=== PATIENT | male | born 1955 | race Caucasian/White ===

== ENCOUNTER 2020-06-20 06:33 | Emergency (ER) | payer MEDICARE ==
[2020-06-20] MEDS ORDERED: Diltiazem 25 MG/5 ML SDV IVPUSH ONE (07:10)
--- NOTE | 2020-06-20 07:33 | EDM.PDOC ---
ED HPI GENERAL MEDICAL PROBLEM - General Chief Complaint: General Stated Complaint: TROUBLE BREATHING Time Seen by Provider: 06/20/20 07:05 Source of Information: Reports: Patient History Limitations: Reports: No Limitations - History of Present Illness INITIAL COMMENTS - FREE TEXT/NARRATIVE: 65-year-old male with 3 days of weakness, palpitations, intermittent shortness of breath. Patient is having trouble sleeping the last 3 nights. No significant pain, denies peripheral edema. No missed medications, denies nausea or vomiting. Onset: Gradual Duration: Day(s): (3 days) Location: Reports: Generalized (Weakness is generalized) Associated Symptoms: Reports: Fever/Chills, Malaise, Shortness of Breath (Especially with activity), Weakness. Denies: Cough, Headaches, Nausea/Vomiting - Related Data Allergies Allergy/AdvReac Type Severity Reaction Status Date / Time No Known Allergies Allergy Verified 06/20/20 07:06 Home Meds: Home Meds Apixaban [Eliquis] 5 mg PO DAILY 06/20/20 [History] Digoxin 125 mcg PO DAILY 06/20/20 [History] Famotidine 40 mg PO ASDIRECTED PRN 06/20/20 [History] Furosemide [Lasix] 20 mg PO ASDIRECTED PRN 06/20/20 [History] Levothyroxine 75 mcg PO ACBREAKFAST 06/20/20 [History] Liothyronine [Cytomel] 5 mcg PO DAILY 06/20/20 [History] Methimazole [Tapazole] 10 mg PO DAILY 06/20/20 [History] Metoprolol Succinate 200 mg PO DAILY 06/20/20 [History] Sacubitril/Valsartan [Entresto 97 mg-103 mg Tablet] 1 each PO BID 06/20/20 [History] Spironolactone [Aldactone] 12.5 mg PO DAILY 06/20/20 [History] atorvaSTATin [Lipitor] 20 mg PO BEDTIME 06/20/20 [History] hydrALAZINE [Apresoline] 25 mg PO DAILY 06/20/20 [History] hydroCHLOROthiazide [Hydrochlorothiazide] 25 mg PO DAILY 06/20/20 [History] Past Medical History Cardiovascular History: Reports: Afib, Aneurysm, Other (See Below) Other Cardiovascular History: ablation Endocrine/Metabolic History: Reports: Hypothyroidism - Infectious Disease History Infectious Disease History: Reports: Chicken Pox, Measles, Mumps - Past Surgical History Cardiovascular Surgical History: Reports: Other (See Below) Other Cardiovascular Surgeries/Procedures: pacer/defib combo right chest GI Surgical History: Reports: Hernia Repair/Other Musculoskeletal Surgical History: Reports: Other (See Below) Other Musculoskeletal Surgeries/Procedures:: neck surgery Social & Family History - Tobacco Use Tobacco Use Status *Q: Never Tobacco User - Caffeine Use Caffeine Use: Reports: Coffee, Tea - Recreational Drug Use Recreational Drug Use: No ED ROS GENERAL - Review of Systems Review Of Systems: See Below Constitutional: Reports: Fever, Chills, Malaise, Decreased Appetite HEENT: Denies: Throat Pain Respiratory: Reports: Shortness of Breath. Denies: Sputum Cardiovascular: Reports: Dyspnea on Exertion, Palpitations GI/Abdominal: Denies: Nausea, Vomiting Skin: Denies: Diaphoresis Neurological: Denies: Headache ED EXAM, GENERAL - Physical Exam Exam: See Below Exam Limited By: No Limitations General Appearance: Alert, No Apparent Distress Eye Exam: Right Eye: Normal Inspection Head: Atraumatic Respiratory/Chest: No Respiratory Distress, Rales (Basilar rales are heard bilaterally) Cardiovascular: No Murmur, Tachycardia, Irregularly Irregular GI/Abdominal: Soft, Non-Tender Extremities: Normal Inspection, Non-Tender, No Pedal Edema Neurological: Alert, Oriented Psychiatric: Normal Affect, Normal Mood Skin Exam: Warm, Dry #1 Interpretation EKG Date: 06/20/20 Time: 07:00 Rhythm: A-Fib EKG Interpretation Comments: Atrial fibrillation with rapid ventricular response Course - Vital Signs Last Recorded V/S: Last Vital Signs Temp 102.8 F H 06/20/20 06:53 Pulse 97 06/20/20 09:15 Resp 19 06/20/20 09:15 BP 129/79 06/20/20 09:15 Pulse Ox 96 06/20/20 09:15 - Orders/Labs/Meds Orders: Active Orders 24 hr Category Date Time Status EKG 12 Lead [EK] Routine Ther 06/20/20 07:08 Ordered Labs: Laboratory Tests 06/20/20 06/20/20 06/20/20 Range/Units 07:14 07:14 07:15 WBC 3.6 L (4.5-11.0) K/uL RBC 4.71 (4.30-5.90) M/uL Hgb 14.2 (12.0-15.0) g/dL Hct 44.9 (40.0-54.0) % MCV 95 (80-98) fL MCH 30 (27-31) pg MCHC 32 (32-36) % Plt Count 91 L (150-400) K/uL Neut % (Auto) 79 H (36-66) % Lymph % (Auto) 12 L (24-44) % [place] % (Auto) 9 H (2-6) % Eos % (Auto) 0 L (2-4) % Baso % (Auto) 1 (0-1) % Sodium 133 L (140-148) mmol/L Potassium 4.5 (3.6-5.2) mmol/L Chloride 99 L (100-108) mmol/L Carbon Dioxide 19 L (21-32) mmol/L Anion Gap 19.5 H (5.0-14.0) mmol/L BUN 23 H (7-18) mg/dL Creatinine 2.2 H (0.8-1.3) mg/dL Est Cr Clr Drug Dosing 1.31 mL/min Estimated GFR (MDRD) 30 L (>60) Glucose 184 H (74-106) mg/dL Calcium 9.5 (8.5-10.1) mg/dL Total Bilirubin 0.9 (0.2-1.0) mg/dL AST 31 (15-37) U/L ALT 39 (12-78) U/L Alkaline Phosphatase 83 (46-116) U/L Troponin I 0.053 (0.000-0.056) ng/mL Total Protein 6.9 (6.4-8.2) g/dL Albumin 3.7 (3.4-5.0) g/dL Globulin 3.2 (2.3-3.5) g/dL Albumin/Globulin Ratio 1.2 (1.2-2.2) SARS-CoV-2 RNA (ZARINA) Negative (NEGATIVE) Meds: Medications Discontinued Medications Generic Name Dose Route Start Last Admin Trade Name Freq PRN Reason Stop Dose Admin Diltiazem HCl 20 mg 06/20/20 07:10 06/20/20 07:16 Diltiazem IVPUSH 06/20/20 07:11 20 mg ONETIME ONE Administration Ceftriaxone Sodium 1 gm/ 50 mls @ 100 mls/hr 06/20/20 08:43 06/20/20 08:47 Sodium Chloride IV 06/20/20 09:12 100 mls/hr ONETIME ONE Administration - Re-Assessments/Exams Free Text/Narrative Re-Assessment/Exam: 06/20/20 09:12 When patient arrived he was in atrial fibrillation with rapid response. Apparently is in atrial fibrillation about "80% of the time". No chest pain. IVs were started, and patient was given 20 g of IV Cardizem. He had a temperature of 102.8, CBC, CMP, Covid test obtained. White count was 3600, portable chest x-ray showed basilar infiltrates especially on the right side. Patient remained fairly comfortable, no increased respiratory rate, shortness of breath or hypoxia. White count returned 3600, Covid surprisingly was negative. Patient was given 1 g of Rocephin IV, and will be started on oral Ceftin and Zithromax as he wants to try to stay out of the hospital. After the Cardizem his rate control was excellent for the next hour, he has an appointment at the pacemaker clinic tomorrow at which time he can be rechecked. He could always return sooner if worsening shortness of breath or chest pain. Troponins normal 06/20/20 11:53 Patient was also given 10 doses of Ambien, 5 mg, to use sparingly to help with sleep. Departure - Departure Time of Disposition: 09:41 Disposition: Home, Self-Care 01 Clinical Impression: Community acquired pneumonia, bilateral - Discharge Information Instructions: Community-Acquired Pneumonia, Adult, [id number] Referrals: Deven Rey MD [Primary Care Provider] - Forms: ED Department Discharge Care Plan Goals: Take 5 days of Zithromax as prescribed starting today, start cephalexin tomorrow as prescribed and recheck with pacemaker clinic as planned. Use sleeping medicine if needed as directed. Return anytime if worsening, especially chest pain or increasing shortness of breath. Continue your regular medications as well. Sepsis Event Note (ED) - Evaluation Sepsis Screening Result: Possible Sepsis Risk - Focused Exam Vital Signs: Vital Signs Temp Pulse Resp BP Pulse Ox 06/20/20 09:15 97 19 129/79 96 06/20/20 08:15 90 15 123/78 06/20/20 07:45 88 19 135/87 94 L 06/20/20 07:15 104 H 18 146/77 H 95 06/20/20 06:53 102.8 F H 123 H 24 H 143/116 H 95 - My Orders Last 24 Hours: My Active Orders 06/20/20 07:08 EKG 12 Lead [EK] Routine - Assessment/Plan Last 24 Hours: My Active Orders 06/20/20 07:08 EKG 12 Lead [EK] Routine
[2020-06-20] MEDS ORDERED: cefTRIAXone 1 GM in Sodium Chloride 0.9% 50 ML IV ONE (08:43)
--- NOTE | 2020-06-20 09:34 | CR ---
CHEST: Portable chest 06/20/2020 at 7:58 AM CLINICAL HISTORY:SOB, fever COMPARISON:None FINDINGS: Heart is enlarged. Patient has a permanent cardiac pacer/defibrillator. Pulmonary vascularity is mildly cephalized. This may be positional. There are diffuse bilateral infiltrates more prominent than mid and lower lung dixon. IMPRESSION: Diffuse bilateral predominantly interstitial infiltrates. Considering patient's history of fever pneumonia or pneumonitis is most likely Cardiac megaly with mild vascular cephalization may represent some element of cardiac decompensation. If clinical symptomatology persists or worsens a repeat exam is recommended.
== END 2020-06-20 09:41 | disposition home or self-care (01) ==
LOC: JP.ED 06:33
DX: J18.9 Pneumonia, unspecified organism (principal); I48.91 Unspecified atrial fibrillation; E03.9 Hypothyroidism, unspecified; Z20.828 Contact with and (suspected) exposure to other viral communicable diseases; Z79.899 Other long term (current) drug therapy; Z79.01 Long term (current) use of anticoagulants
CPT/HCPCS: 36415; 71045; 80053; 84484; 85025; 93005; 93010; 96365; 96375; 99285; J0696; J3490; J7050; U0002

== ENCOUNTER 2020-06-21 09:38 | Emergency (ER) | payer MEDICARE ==
--- NOTE | 2020-06-21 10:15 | CR ---
CHEST: Portable 06/21/2020 at 2:21 AM CLINICAL HISTORY:SOB COMPARISON:06/20/2020 FINDINGS: The heart is enlarged. Pulmonary vascularity is normal. There are atherosclerotic changes in the aorta. Patient has a permanent cardiac pacer/defibrillator. There is a decrease in lung markings in both lung bases. NO EFFUSION IS SEEN IMPRESSION: Cardiomegaly with permanent cardiac pacer/defibrillator Decrease in pulmonary vascularity and interstitial lung markings suggestive resolving CHF
[2020-06-21] MEDS ORDERED: Sodium Chloride 0.9% 10 ML Syringe FLUSH PRN (10:19)
[2020-06-21] MEDS ORDERED: LORazepam 2 MG/ML SDV IVPUSH ONE (10:19)
[2020-06-21] MEDS ORDERED: Ondansetron 4 MG/2 ML SDV IVPUSH ONE (10:19)
--- NOTE | 2020-06-21 10:19 | EDM.PDOC ---
ED HPI GENERAL MEDICAL PROBLEM - General Chief Complaint: Cardiovascular Problem Stated Complaint: BREATHING TROUBLES RELATED TO PNEUMONIA Time Seen by Provider: 06/21/20 10:00 Source of Information: Reports: Patient, Family History Limitations: Reports: No Limitations - History of Present Illness INITIAL COMMENTS - FREE TEXT/NARRATIVE: 65-year-old male who was seen yesterday with weakness, cough, fever, was Covid negative but chest x-ray showed bilateral interstitial infiltrates in the lower lobes. He was given 1 g of Rocephin, started on Ceftin and Zithromax and told to follow-up with his cardiology appointment this morning. Apparently he was called yesterday afternoon and they canceled his appointment to adjust his pacemaker, and reschedule down in [place]. Last night his defibrillator went off "8 times", this morning he feels more anxious, short of breath, and more fatigued. Yet he was in atrial fibrillation with rapid ventricular response and frequent PVCs, today he is in sinus rhythm and his vitals are stable. His 103 temperature present yesterday is now 99.6, his O2 saturations are normal. He is very anxious and appears very fatigued. Associated Symptoms: Reports: Cough, Fever/Chills, Malaise, Shortness of Breath, Weakness. Denies: Chest Pain, Headaches - Related Data Allergies Allergy/AdvReac Type Severity Reaction Status Date / Time No Known Allergies Allergy Verified 06/21/20 09:57 Home Meds: Home Meds Apixaban [Eliquis] 5 mg PO DAILY 06/20/20 [History] Digoxin 125 mcg PO DAILY 06/20/20 [History] Famotidine 40 mg PO ASDIRECTED PRN 06/20/20 [History] Furosemide [Lasix] 20 mg PO ASDIRECTED PRN 06/20/20 [History] Levothyroxine 75 mcg PO ACBREAKFAST 06/20/20 [History] Liothyronine [Cytomel] 5 mcg PO DAILY 06/20/20 [History] Methimazole [Tapazole] 10 mg PO DAILY 06/20/20 [History] Metoprolol Succinate 200 mg PO DAILY 06/20/20 [History] Sacubitril/Valsartan [Entresto 97 mg-103 mg Tablet] 1 each PO BID 06/20/20 [History] Spironolactone [Aldactone] 12.5 mg PO DAILY 06/20/20 [History] atorvaSTATin [Lipitor] 20 mg PO BEDTIME 06/20/20 [History] hydrALAZINE [Apresoline] 25 mg PO DAILY 06/20/20 [History] hydroCHLOROthiazide [Hydrochlorothiazide] 25 mg PO DAILY 06/20/20 [History] Azithromycin 250 mg PO DAILY 06/21/20 [History] cefUROXime axetiL [Cefuroxime] 500 mg PO BID 06/21/20 [History] Past Medical History Cardiovascular History: Reports: Afib, Aneurysm, Other (See Below) Other Cardiovascular History: ablation Endocrine/Metabolic History: Reports: Hypothyroidism - Infectious Disease History Infectious Disease History: Reports: Chicken Pox, Measles, Mumps - Past Surgical History Cardiovascular Surgical History: Reports: Other (See Below) Other Cardiovascular Surgeries/Procedures: pacer/defib combo right chest GI Surgical History: Reports: Hernia Repair/Other Musculoskeletal Surgical History: Reports: Other (See Below) Other Musculoskeletal Surgeries/Procedures:: neck surgery Social & Family History - Tobacco Use Tobacco Use Status *Q: Never Tobacco User - Caffeine Use Caffeine Use: Reports: Coffee, Tea - Recreational Drug Use Recreational Drug Use: No ED ROS GENERAL - Review of Systems Review Of Systems: See Below Constitutional: Reports: Fever, Chills (Fever and chills have improved), Malaise, Weakness HEENT: Denies: Throat Pain, Vision Change Respiratory: Reports: Shortness of Breath, Cough. Denies: Sputum Cardiovascular: Reports: Other (See HPI, defibrillator has gone off 8 times overnight). Denies: Chest Pain GI/Abdominal: Reports: Nausea. Denies: Diarrhea, Vomiting : Reports: No Symptoms Skin: Reports: No Symptoms Neurological: Reports: Dizziness, Difficulty Walking, Weakness. Denies: Headache Psychiatric: Reports: Anxiety ED EXAM, GENERAL - Physical Exam Exam: See Below Exam Limited By: No Limitations General Appearance: Alert, No Apparent Distress Eye Exam: Bilateral Eye: Normal Inspection Respiratory/Chest: No Respiratory Distress, Rales (A few basilar rales are heard, no wheezing and overall lung sounds are improved from yesterday) Cardiovascular: Regular Rate, Rhythm, Extra Beats. No: Tachycardia GI/Abdominal: Soft, Non-Tender Extremities: Normal Inspection. No: Pedal Edema Neurological: Alert, Oriented, Other (Generalized weakness but no asymmetry) Psychiatric: Anxious Skin Exam: Warm, Dry Course - Vital Signs Last Recorded V/S: Last Vital Signs Temp 99.6 F 06/21/20 09:48 Pulse 87 06/21/20 12:10 Resp 35 H 06/21/20 12:10 BP 144/97 H 06/21/20 12:10 Pulse Ox 95 06/21/20 12:10 - Orders/Labs/Meds Orders: Active Orders 24 hr Category Date Time Status Saline Lock Insert [OM.PC] Routine Oth 06/21/20 10:19 Ordered Labs: Laboratory Tests 06/21/20 06/21/20 06/21/20 Range/Units 10:12 10:26 10:26 WBC 3.6 L (4.5-11.0) K/uL RBC 4.43 (4.30-5.90) M/uL Hgb 13.2 (12.0-15.0) g/dL Hct 41.1 (40.0-54.0) % MCV 93 (80-98) fL MCH 30 (27-31) pg MCHC 32 (32-36) % Plt Count 65 L (150-400) K/uL Neut % (Auto) 77 H (36-66) % Lymph % (Auto) 11 L (24-44) % [place] % (Auto) 11 H (2-6) % Eos % (Auto) 0 L (2-4) % Baso % (Auto) 1 (0-1) % D-Dimer, Quantitative 3694.67 H (0.0-500.0) ng/mL Sodium (140-148) mmol/L Potassium (3.6-5.2) mmol/L Chloride (100-108) mmol/L Carbon Dioxide (21-32) mmol/L Anion Gap (5.0-14.0) mmol/L BUN (7-18) mg/dL Creatinine (0.8-1.3) mg/dL Est Cr Clr Drug Dosing mL/min Estimated GFR (MDRD) (>60) Glucose (74-106) mg/dL Calcium (8.5-10.1) mg/dL Ferritin (8-388) ng/ml SARS-CoV-2 RNA (ZARINA) Negative (NEGATIVE) 06/21/20 Range/Units 10:26 WBC (4.5-11.0) K/uL RBC (4.30-5.90) M/uL Hgb (12.0-15.0) g/dL Hct (40.0-54.0) % MCV (80-98) fL MCH (27-31) pg MCHC (32-36) % Plt Count (150-400) K/uL Neut % (Auto) (36-66) % Lymph % (Auto) (24-44) % [place] % (Auto) (2-6) % Eos % (Auto) (2-4) % Baso % (Auto) (0-1) % D-Dimer, Quantitative (0.0-500.0) ng/mL Sodium 129 L (140-148) mmol/L Potassium 4.2 (3.6-5.2) mmol/L Chloride 97 L (100-108) mmol/L Carbon Dioxide 18 L (21-32) mmol/L Anion Gap 18.2 H (5.0-14.0) mmol/L BUN 33 H (7-18) mg/dL Creatinine 1.8 H (0.8-1.3) mg/dL Est Cr Clr Drug Dosing 48.25 mL/min Estimated GFR (MDRD) 38 L (>60) Glucose 155 H (74-106) mg/dL Calcium 9.3 (8.5-10.1) mg/dL Ferritin 878 H (8-388) ng/ml SARS-CoV-2 RNA (ZARINA) (NEGATIVE) Meds: Medications Discontinued Medications Generic Name Dose Route Start Last Admin Trade Name Freq PRN Reason Stop Dose Admin Lorazepam 0.5 mg 06/21/20 10:19 06/21/20 10:42 Ativan IVPUSH 06/21/20 10:20 0.5 mg ONETIME ONE Administration Ondansetron HCl 4 mg 06/21/20 10:19 06/21/20 10:40 Zofran IVPUSH 06/21/20 10:20 4 mg ONETIME ONE Administration Sodium Chloride 10 ml 06/21/20 10:19 06/21/20 10:52 Saline Flush FLUSH 10 ml ASDIRECTED PRN Administration Keep Vein Open - Re-Assessments/Exams Free Text/Narrative Re-Assessment/Exam: 06/21/20 10:28 A saline lock was started and the patient was given 4 mg of Zofran and 0.5 mg of IV Ativan. A 1 view chest x-ray was done which showed improvement over findings seen yesterday. CBC, BMP, D-dimer, ferritin were obtained as well as a repeat Covid test. He was kept on cardiac monitoring. 06/21/20 12:01 Cardiac monitoring was stable with normal sinus rhythm and occasional PVCs. White count is still at 3600, 2 view chest x-ray is improved. Patient calmed down significantly after the medications, phone consultation was made with [facility] and they were full, [facility] in [place] and Dr. Wilks kindly accepted the patient for transfer to the emergency room to assess his pacemaker status. 06/21/20 12:03 D-dimer was significantly elevated at 3600, ferritin twice normal. The repeat Covid test again was negative. He will be transferred to [place] for reassessment. Departure - Departure Time of Disposition: 12:16 Disposition: DC/Tfer to Other 70 Clinical Impression: Ventricular tachycardia Bilateral pneumonia Qualifiers: Pneumonia type: due to unspecified organism Lung location: lower lobe of lung Qualified Code(s): J18.9 - Pneumonia, unspecified organism - Discharge Information Referrals: Deven Rey MD [Primary Care Provider] - Forms: ED Department Discharge Care Plan Goals: Patient is to be transferred to [place] for assessment of cardiology stability, arrhythmia, pacemaker and defibrillator function and possible further treatment for bilateral pneumonia and weakness Sepsis Event Note (ED) - Evaluation Sepsis Screening Result: Possible Sepsis Risk - Focused Exam Vital Signs: Vital Signs Temp Pulse Resp BP Pulse Ox 06/21/20 12:10 87 35 H 144/97 H 95 06/21/20 11:40 85 35 H 124/83 94 L 06/21/20 11:10 94 21 H 138/94 H 94 L 06/21/20 10:40 90 33 H 146/101 H 93 L 06/21/20 10:10 91 21 H 118/94 H 94 L 06/21/20 09:48 99.6 F 88 36 H 141/93 H 93 L - My Orders Last 24 Hours: My Active Orders 06/21/20 10:19 Saline Lock Insert [OM.PC] Routine - Assessment/Plan Last 24 Hours: My Active Orders 06/21/20 10:19 Saline Lock Insert [OM.PC] Routine
== END 2020-06-21 12:37 | disposition other institution (70) ==
LOC: JP.ED 09:38
DX: J18.9 Pneumonia, unspecified organism (principal); Z20.828 Contact with and (suspected) exposure to other viral communicable diseases; I48.91 Unspecified atrial fibrillation; E03.9 Hypothyroidism, unspecified; Z79.01 Long term (current) use of anticoagulants; Z79.899 Other long term (current) drug therapy
CPT/HCPCS: 36415; 71045; 80048; 82728; 85025; 85379; 96374; 96375; 99285; J2060; J2405; U0002